=== PATIENT | female | born 1985 | race Caucasian/White ===

== ENCOUNTER → 2017-07-07 | Outpatient (REF) | payer BC | LOC: M SFHCLERA 18:25 | DX: R68.89 Other general symptoms and signs (principal) ==

== ENCOUNTER → 2017-07-11 | Outpatient (REF) | payer BC ==
[2017-07-18 00:06] LABS: HPV LOW VOL RFLX Positive (Negative)
== END ==
LOC: M LAB REF 18:08
DX: Z12.4 Encounter for screening for malignant neoplasm of cervix (principal)
CPT/HCPCS: G0123

== ENCOUNTER → 2017-09-13 | Outpatient (REF) | payer BC | LOC: M LAB REF 17:17 | DX: R87.810 Cervical high risk human papillomavirus (HPV) DNA test positive (principal); N87.0 Mild cervical dysplasia | CPT/HCPCS: 88304 ==

== ENCOUNTER → 2018-12-01 | Outpatient (CLI) | payer BC ==
[~2018-12-01] MED LIST: *ANUSOI RE; ACET500C OR; COLA100C2 OR; IBUP800T OR; MILKSUS OR; PRENTAB8 PO; lanolin cream TOP
== END ==
LOC: M SMT 10:22
PROVIDERS: ATTEND Advanced Practice Midwife
DX: R87.610 Atypical squamous cells of undetermined significance on cytologic smear of cervix (ASC-US) (principal); Z13.79 Encounter for other screening for genetic and chromosomal anomalies
CPT/HCPCS: 36415; 87624; G0123

== ENCOUNTER → 2018-12-04 | Outpatient (CLI) | payer BC ==
--- NOTE | 2018-12-04 09:32 | REPMRS ---
Patient History The patient states she had a clinical breast exam in November 2018. Family history of breast cancer at age 33 in mother and pancreas cancer at 28. 3D TOMOSYNTHESIS WAS PERFORMED. The Chris Chavez lifetime risk for breast cancer is 21.2%. Digital Mammo Screening Bilat: December 04, 2018 - Exam #: [id number] Bilateral CC and MLO view(s) were taken. Technologist: Rebecca Soto, Technologist FINDINGS: The breast tissue is extremely dense which could obscure a lesion on mammography. There is no evidence of cancer on this mammogram. Assessment: BI-RADS/ACR category 2 mammogram. Benign Findings. Recommendation Routine screening mammogram of both breasts in 1 year (for women over age 40). This mammogram was interpreted with the aid of an FDA-approved computer-aided dectection system. THE LIFETIME RISK OF BREAST CANCER IS 21.2%, THEREFORE SUPPLEMENTAL SCREENING MRI OF THE BREASTS IS RECOMMENDED IN 6 MONTHS. Electronically Signed By: Rodri Espinoza MD 12/04/18 0938
== END ==
LOC: M RAD 08:40
PROVIDERS: ATTEND Advanced Practice Midwife
DX: Z12.31 Encounter for screening mammogram for malignant neoplasm of breast (principal); Z80.3 Family history of malignant neoplasm of breast; Z80.0 Family history of malignant neoplasm of digestive organs

== ENCOUNTER → 2019-07-17 | Outpatient (CLI) | payer BC ==
[~2019-07-17] MED LIST changes: +PROHANCE 279.3MG/ML 15ML VIAL (A9576) As Ordered ONE
--- NOTE | 2019-07-17 15:27 | REP ---
MRI BILATERAL BREASTS: HISTORY: Mother with breast cancer at age 33. [facility] lifetime risk of breast cancer 21.2%. Comparison mammogram 12/04/2018. TECHNIQUE: Multiple sequences obtained in the axial, coronal and sagittal planes prior and following the intravenous administration of 13 mL ProHance. Images are evaluated on the Ecato software including dynamic post-IV gadolinium axial T1 fat sat images, subtraction images, color-overlay images, CAD images and MIP reconstruction images. Moderate fibroglandular tissue is seen bilaterally in a fairly symmetrical pattern. There are a few subcentimeter cysts anteriorly in the left breast. No axillary adenopathy is seen. There is mild background parenchymal enhancement. No suspicious enhancing mass or morphologic abnormality is seen bilaterally. Note is made of a hyperintense nodule on T2-weighted images in the left lobe of the liver measuring approximately 1.5 cm in diameter. This demonstrates enhancement characteristics most consistent with hemangioma. IMPRESSION: BIRADS category 2 benign bilateral breast MRI. No suspicious enhancing mass or morphologic abnormality. Annual supplemental screening MRI of the breasts is recommended for patients with lifetime risk of breast cancer 20% or greater. Electronically Signed by Rodri Espinoza MD 07/17/2019 03:42 P
== END ==
LOC: M RAD 12:35
PROVIDERS: ATTEND Advanced Practice Midwife
DX: Z80.3 Family history of malignant neoplasm of breast (principal)
CPT/HCPCS: A9576; C8908

== ENCOUNTER → 2020-05-20 | Outpatient (REF) | payer BC ==
[~2020-05-20] MED LIST changes: -PROHANCE 279.3MG/ML 15ML VIAL (A9576) As Ordered ONE
== END ==
LOC: M SFHCWAGY 17:02
PROVIDERS: ATTEND Advanced Practice Midwife
DX: Z12.4 Encounter for screening for malignant neoplasm of cervix (principal); Z01.419 Encounter for gynecological examination (general) (routine) without abnormal findings

== ENCOUNTER → 2020-05-27 | Outpatient (CLI) | payer BC ==
--- NOTE | 2020-05-27 16:37 | REPMRS ---
Patient History The patient states she had a clinical breast exam in 06/05 Family history of breast cancer at age 33 in mother. Taking hormonal contraceptives for 10 years. Digital Woman Screen Mammo: May 27, 2020 - Exam #: [id number] Bilateral CC and MLO view(s) were taken. Technologist: Ambreen Caicedo, Technologist Prior study comparison: December 04, 2018, bilateral digital mammo screening bilat, performed at [facility]. FINDINGS: The breast tissue is heterogeneously dense. This may lower the sensitivity of mammography. The Volpara volumetric breast density category is: C. There is a moderate amount of heterogeneously dense fibroglandular tissue which is fairly symmetric. There is no interval development of dominant mass, architectural distortion, or grouped microcalcification typical of malignancy. There has been no change in the appearance of the mammogram from the prior studies. 3-D tomosynthesis shows no additional findings. Assessment: BI-RADS/ACR category 1 mammogram. Negative Mammogram. Recommendation Breast MRI of both breasts in 6 months. Routine screening mammogram of both breasts in 1 year (for women over age 40). This patient's [facility] Lifetime Breast Cancer RIsk is estimated at 21.1 %. Annual screening Breast MRI scanniing is recommended for patient's whose lifetime risk assessment is over 20%. This mammogram was interpreted with the aid of an FDA-approved computer-aided dectection system. Electronically Signed By: John Wallace MD 05/27/20 [id number]
== END ==
LOC: M WHC 15:07
PROVIDERS: ATTEND Advanced Practice Midwife
DX: Z12.31 Encounter for screening mammogram for malignant neoplasm of breast (principal); Z80.3 Family history of malignant neoplasm of breast; Z92.0 Personal history of contraception

== ENCOUNTER → 2020-12-27 | Outpatient (CLI) | payer BC ==
[~2020-12-27] MED LIST changes: +PROHANCE 279.3MG/ML 15ML VIAL As Ordered ONE
--- NOTE | 2020-12-28 09:47 | REP ---
INDICATION: HIGH RISK FOR BREAST CA DENSE BRST TISSUE. COMPARISON: Comparison mammography May 27, 2020. Comparison breast MRI study July 17, 2019. TECHNIQUE: Three Tamiko MRI imaging was performed with a dedicated breast coil. Axial, coronal, and sagittal T1 and T2 weighted scans were obtained with and without fat saturation in the usual fashion. The study includes dynamically acquired post gadolinium-enhanced imaging with image subtraction. Maximum intensity projection and multi planar reformation imaging is included as well. This study is interpreted with the aid of [id number], an FDA approved computer aided detection (CAD) software program, on a dedicated breast MRI workstation. The gadolinium enhancement dose is 14 mL of intravenous ProHance. FINDINGS: There is a extensive amount of fibroglandular tissue bilaterally corresponding with the mammographic pattern. There is moderate to marked background parenchymal enhancement. There is no evidence of axillary lymphadenopathy or significant breast cystic change. High-resolution pre and post-contrast T1 and T2 weighted scans show no suspicious morphologic abnormality in either breast. Dynamically acquired sequential postcontrast images show no suspicious area of enhancement and washout kinetics in either breast to suggest malignancy. Subtraction images show no additional abnormality. The previously noted 1.5 cm left lobe hepatic hemangioma is again seen. This is unchanged. There is a inferolateral skin tag on the right. IMPRESSION: BI-RADS category 2 benign bilateral breast MRI findings. No significant change from prior breast MRI study. <Electronically signed by John Wallace > 12/28/20 0913
== END ==
LOC: M RAD 15:00
PROVIDERS: ATTEND Advanced Practice Midwife
DX: Z12.39 Encounter for other screening for malignant neoplasm of breast (principal)
CPT/HCPCS: A9576; C8908

== ENCOUNTER 2021-01-15 14:35 | Emergency (ER) | payer BC ==
[~2021-01-15] VITALS: Ht 162.6 cm; Wt 76.6 kg
[~2021-01-15 14:35] MED LIST changes: -PROHANCE 279.3MG/ML 15ML VIAL As Ordered ONE
[2021-01-15 17:59] LABS: URINE PREG TEST NEGATIVE (NEGATIVE)
--- NOTE | 2021-01-15 18:16 | REP ---
INDICATION: pelvic pain, IUD eval. COMPARISON: None. TECHNIQUE: Trans abdominal and transvaginal ultrasound evaluation of the pelvis was performed in the axial, sagittal and coronal planes. FINDINGS: The uterus measures 7.6 x 4.6 x 3.6 cm. There is an IUD present in good position in the uterine cavity. The endometrium measures 2 mm in thickness. The right ovary measures 3.2 x 2.5 x 2.4 cm and contains a 2.1 x 1.9 x 1.5 cm follicle. The left ovary measures 2.9 x 2.4 x 1.7 cm it contains a 10 x 9 x 8 mm follicle. There is no free fluid in the pelvis. The urinary bladder is unremarkable. IMPRESSION: 1. IUD present in good position. 2. The ovaries are normal. <Electronically signed by Bairon Somers > 01/15/21 0394
[2021-01-15 18:40] VITALS: BP 121/75
[2021-01-15 19:29] LABS: GC DNA AMPLIFICATION NEGATIVE (NEGATIVE)
== END 2021-01-15 18:40 | disposition home or self-care (01) ==
LOC: M ED 17:48
DX: N83.291 Other ovarian cyst, right side (principal); Z97.5 Presence of (intrauterine) contraceptive device; Z88.0 Allergy status to penicillin; F17.210 Nicotine dependence, cigarettes, uncomplicated

== ENCOUNTER → 2021-08-15 | Outpatient (CLI) | payer BC | LOC: M WHC 14:30 | PROVIDERS: ATTEND Advanced Practice Midwife | DX: Z12.31 Encounter for screening mammogram for malignant neoplasm of breast (principal) ==

== ENCOUNTER → 2021-10-10 | Outpatient (REF) | payer BC | LOC: M PLALAB 13:58 | PROVIDERS: ATTEND Advanced Practice Midwife | DX: Z12.4 Encounter for screening for malignant neoplasm of cervix (principal) ==

== ENCOUNTER → 2021-10-13 | Outpatient (CLI) | payer BC ==
[2021-10-13 17:19] LABS: FREE T4 0.89 NG/DL (0.76-1.46); THYROID STIMULATING HORMONE 0.631 uIU/ML (0.358-3.740)
== END ==
LOC: M PLALAB 13:58
PROVIDERS: ATTEND Advanced Practice Midwife
DX: E04.1 Nontoxic single thyroid nodule (principal)

== ENCOUNTER → 2024-01-10 | Outpatient (CLI) | payer OTHER ==
[~2024-01-10] MED LIST changes: +PROHANCE 279.3MG/ML 15ML VIAL ONE
== END ==
LOC: M PLAIMG 07:54
PROVIDERS: ATTEND Physician Assistant
DX: G43.909 Migraine, unspecified, not intractable, without status migrainosus (principal)
CPT/HCPCS: 70553; A9576

== ENCOUNTER → 2024-04-21 | Outpatient (CLI) | payer OTHER | LOC: M PLAIMG 12:20 | PROVIDERS: ATTEND Physician Assistant | DX: G43.909 Migraine, unspecified, not intractable, without status migrainosus (principal) | CPT/HCPCS: 70544; 70549; A9576 ==